=== PATIENT | female | born 1985 | race American Indian/Alaskan Native ===

== ENCOUNTER 2018-07-20 08:36 | Inpatient (IN) | payer OTHER ==
[2018-07-20] MEDS ORDERED: STADOL IV PRN (09:08)
[2018-07-20] MEDS ORDERED: ZOFRAN IV PRN ×2 (09:08→17:05)
[2018-07-20] MEDS ORDERED: BRETHINE IVP PRN (09:08)
[2018-07-20] MEDS ORDERED: XYLOCAINE 2% INFILTRATI ONE (09:08)
[2018-07-20] MEDS ORDERED: PHENERGAN PO PRN ×2 (09:08→17:05)
[2018-07-20] MEDS ORDERED: BRETHINE SUB-Q PRN (09:08)
[2018-07-20 09:41] LABS: Hematocrit 35.8 % (30.3-42.9); Hemoglobin 12.2 gm/dl (10.1-14.3); Mean Corpuscular HGB Conc 34 % (30-34); Mean Corpuscular Volume 99 fl (79-97); Platelet Count 262 K/mm3 (140-440); Red Blood Count 3.61 M/mm3 (3.65-5.03); Red Cell Distribution Width 13.8 % (13.2-15.2)
[2018-07-20] MEDS ORDERED: PITOCin/NS 30 UNIT/500ML 30 UNITS/500 ML BAG IV SCH (10:00)
[2018-07-20] MEDS ORDERED: LACTATED RINGERS 1,000 ML IV SCH (10:00)
[2018-07-20] MEDS ORDERED: PITOCin/NS 20 UNIT/1000ML DRIP 20 UNITS/1,000 ML BAG IV SCH ×2 (10:00→17:05)
--- NOTE | 2018-07-20 11:56 | History and Physical Report ---
History of Present Illness Date of examination: 07/20/18 Date of admission: 07/20/18 08:36 Chief complaint: IOL per [facility] for maternal cardiac condition and c/o irregular heart beat and intermittent SOB History of present illness: Menstrual History Regularity: regular Menses every: 28-35 days Duration: 4 LMP: 10/20/2017 LMP reliability: definite LMP character: normal test type: urine test Date: 12/12/2017 BC at conception: none Planned ? yes EDC Calculations LMP: 07/27/2018 First Doppler FHT (date): 12/12/2017 EDC Confirmation: 07/27/2018 Gestational Age: 7 4/7 weeks Risk Factors: Smoked Tobacco Use: Never smoker Smokeless Tobacco Use: Never Passive smoke exposure: no Drug use: no HIV high-risk behavior: low risk Caffeine use: 0 drinks per day Alcohol use: no Seatbelt use: preg-associate counsel % Dietary Counseling: pn yes Past Medical History Abnormal PAP: negative VIN Exposure: negative Infertility: negative Uterine Anomaly: negative Uterine Surgery (not C/S): negative Other Gynecologic Problems: negative Social Hx: Unemployed Patient is single Infection History Hx of STD: chlamydia HIV Risk Eval: low risk Hepatitis B Risk Eval: low risk Personal hx. of genital herpes: no Partner hx. of genital herpes: no Rash, Viral, or Febrile illness since last LMP? no Varicella/Chicken Pox Status: Previous Disease TB Risk: no Genetic History Congenital Heart Defect: Mom: no Dad: no Madi Disease: Mom: no Dad: no Thalassemia Mom: no Dad: no Neural Tube Defect Mom: no Dad: no Down's Syndrome Mom: no Dad: no Kiel-Sachs Mom: no Dad: no Sickle Cell Disease/Trait Mom: no Dad: no Hemophilia Mom: no Dad: no Muscular Dystrophy Mom: no Dad: no Cystic Fibrosis Mom: no Dad: no Davison Chorea Mom: no Dad: no Mental Retardation Mom: no Dad: no Fragile X Mom: no Dad: no Other Genetic/Chromosomal Disorder Mom: no Dad: no Child w/other defect Mom: no Dad: no Enviromental Exposures Xray Exposure: no Medication, drug, or alcohol use since LMP: no Chemical/Other Exposure: no Exposure to Cat Liter: no Hx of Parvovirus (Fifth Disease): no Occupational Exposure to Children: none Active Medications: PRENATE PIXIE () one po QD METOPROLOL SUCCINATE ER 25 MG ORAL TABLET EXTENDED RELEASE 24 HOUR (METOPROLOL SUCCINATE) Current Allergies: No known allergies Past History Past Medical History: other (see H&P) Past Surgical History: other (see H&P) 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: other (see H&P) Family/Genetic History: other (see H&P) Social history: other (see H&P) - Obstetrical History Expected Date of Delivery: 07/27/18 Actual Gestation: 39 Week(s) 0 Day(s) : 6 Medications and Allergies Allergies Allergy/AdvReac Type Severity Reaction Status Date / Time No Known Allergies Allergy Verified 07/29/15 08:09 Home Medications Medication Instructions Recorded Confirmed Last Taken Type Metoprolol Xl [Metoprolol 25 mg PO QHS 07/29/15 08/20/16 1 Day Ago History SUCCINATE ER TAB] ~08/19/16 Active Meds: Active Medications Butorphanol Tartrate (Stadol) 2 mg IV Q2H PRN PRN Reason: Pain , Severe (7-10) Ephedrine Sulfate (Ephedrine Sulfate) 10 mg IV Q2M PRN PRN Reason: Hypotension Oxytocin/Sodium Chloride (Pitocin/Ns 20 Unit/1000ml Drip) 20 units in 1,000 mls @ 125 mls/hr IV DIRECT YASMIN Lactated Ringer's (Lactated Ringers) 1,000 mls @ 125 mls/hr IV DIRECT YASMIN Last Admin: 07/20/18 10:13 Dose: 125 mls/hr Documented by: Oxytocin/Sodium Chloride (Pitocin/Ns 30 Unit/500ml) 30 units in 500 mls @ 2 mls/hr IV TITR YASMIN; Protocol Last Titration: 07/20/18 11:48 Dose: 12 ml/hr, 12 mls/hr Documented by: Mineral Oil (Mineral Oil) 30 ml PO QHS PRN PRN Reason: Constipation Ondansetron HCl (Zofran) 4 mg IV Q8H PRN PRN Reason: Nausea And Vomiting Promethazine HCl (Phenergan) 25 mg PO Q6H PRN PRN Reason: Nausea And Vomiting Terbutaline Sulfate (Brethine) 0.25 mg SUB-Q ONCE PRN PRN Reason: Hyperstimulation/Hypertonicity Terbutaline Sulfate (Brethine) 0.25 mg IVP ONCE PRN PRN Reason: Hyperstimulation/Hypertonicity Review of Systems All systems: negative - Vital Signs Vital signs: Vital Signs Pulse BP 83 114/70 07/20/18 09:14 07/20/18 09:14 Temp Pulse Resp BP Pulse Ox 73 111/59 07/20/18 11:26 07/20/18 11:26 - Physical Exam Breasts: Positive: normal Cardiovascular: Regular rate, Normal S1, Normal S2 Lungs: Positive: Clear to auscultation Abdomen: Positive: normal appearance, soft, normal bowel sounds. Negative: distention, tenderness Vulva: both: normal Vagina: Positive: normal moisture. Negative: discharge Cervix: Negative: lesion, discharge Uterus: Positive: normal size, normal contour Adnexa: both: normal Anus/Rectum: Positive: normal perianal skin, heme negative. Negative: rectal mass, hemorrhoids Extremities: Deep Tendon Reflex Grade: Normal +2 - Obstetrical FHR: auscultation normal, category 1 Uterine Contraction Monitor Mode: External Cervical Dilatation: 4 Cervical Effacement Percentage: 60 station: -1 Uterine Contraction Frequency (min): irreguar Uterine Contraction Pattern: Irregular Uterine Tone Measurement Phase: Contraction Results Result Diagrams: 07/20/18 09:30 Abnormal lab results 07/20/18 Range/Units 09:30 RBC 3.61 L (3.65-5.03) M/mm3 MCV 99 H (79-97) fl MCH 34 H (28-32) pg All other labs normal. Assessment and Plan 33 y.o IUP at 39w0d presents for IOL per [facility] recommendation for maternal cardiac condition and recent c/o irregular heart beat and intermittent shortness of breath. SVE is 4/60/-1, vertex, IBOW. Category 1 tracing, irregular contractions on TOCO. GBS negative. Routine admission orders placed in EMR. Pitocin induction initiated. Anticipate .
[2018-07-20] MEDS ORDERED: NARCAN 2 MG/2 ML IV PRN (13:26)
[2018-07-20] MEDS ORDERED: fentaNYL-BUPIV 2 MCG/ML-0.125% 200 MCG/100 ML BAG EPIDURAL ONE (13:28)
[2018-07-20] MEDS ORDERED: fentaNYL-BUPIV 2 MCG/ML-0.125% 200 MCG/100 ML BAG EPIDURAL SCH (14:00)
--- NOTE | 2018-07-20 15:07 | Procedure Note ---
OB Delivery Note - Delivery Date of Delivery: 07/20/18 Cut Press Operator: POLA GAMBLE Estimated blood loss: 300cc - Vaginal Delivery presentation: vertex Delivery position: OP (OAP) Intrapartum events: none Delivery induction: oxytocin Delivery monitor: external FHT, external uterine Route of delivery: Delivery placenta: spontaneous Episiotomy: none Delivery laceration: none Anesthesia: epidural Delivery comments: of viable male over intact perineum. Infant placed skin to skin on mother's abdomen, drying and stimulation produce vigorous cry. Cord clamped x2 upon cessation of pulsation and cut by FOC. Placenta delivered complete and intact, 3VC. Pitocin to IV. Fundus firm, ML. EBL 300, hemostatic. No lacerations to repair. VSS. Patient is comfortable. Infant apgars 8/9, weight 7#4. Mother and LDR stable. - A at 1 minute: 8 at 5 minutes: 9 Gender: Male (7#4)
[2018-07-20] MEDS ORDERED: LANSINOH TP PRN (17:05)
[2018-07-20] MEDS ORDERED: MILK OF MAGNESIA PO PRN (17:05)
[2018-07-20] MEDS ORDERED: BENADRYL PO PRN (17:05)
[2018-07-20] MEDS ORDERED: TUCKS PAD TP PRN (17:05)
[2018-07-20] MEDS ORDERED: SODIUM CHLORIDE FLUSH SYRINGE 10 ML IV SCH (17:05)
[2018-07-20] MEDS ORDERED: DULCOLAX PR PRN (17:05)
[2018-07-20] MEDS: IBUPROFEN PO SCH (17:53)
[2018-07-20] MEDS ORDERED: MINERAL OIL PO PRN (22:00)
[2018-07-20] MEDS: TYLENOL PO PRN (22:26)
[2018-07-21] MEDS: IBUPROFEN PO SCH ×5 (02:23→23:39)
[2018-07-21 05:11] LABS: Hematocrit 32.1 % (30.3-42.9); Hemoglobin 11.1 gm/dl (10.1-14.3)
[2018-07-21] MEDS ORDERED: BOOSTRIX IM ONE (06:00)
[2018-07-21] MEDS: PRENATAL VITAMIN PO SCH (09:40)
--- NOTE | 2018-07-21 10:20 | Progress Note ---
Subjective Date of service: 07/20/18 Principal diagnosis: Epidural Interval history: At bedside to speak with patient per nursing staff request. Patient is now post epidural day 1. Combined spinal and epidural note denies tita leakage of CSF. Patient describes headache with pain 3 out of 10 down from 7 out of 10 yesterday with neck stiffness. Pain is worse when sitting up. Post dural puncture headache explained to patient and options discussed to include conservative measures and epidural blood patch. Patient agrees to proceed with conservative measures and will alert nursing personnel if headache is unresolved within 48 hours. If needed, we will then proceed with epidural blood patch. Objective - Constitutional Vitals: Vital Signs - 12hr 07/20/18 07/20/18 07/21/18 22:26 23:26 01:09 Temperature 98.5 F Pulse Rate 68 Respiratory 18 18 18 Rate Blood Pressure 107/47 Blood Pressure [Left] O2 Sat by Pulse 97 Oximetry 07/21/18 07/21/18 07/21/18 02:23 03:23 07:55 Temperature 98.6 F Pulse Rate 89 Respiratory 18 18 20 Rate Blood Pressure 98/53 Blood Pressure [Left] O2 Sat by Pulse 98 Oximetry 07/21/18 08:00 Temperature Pulse Rate Respiratory Rate Blood Pressure Blood Pressure 98/53 [Left] O2 Sat by Pulse Oximetry - Labs CBC & Chem 7: 07/21/18 04:59
--- NOTE | 2018-07-21 15:04 | Progress Note ---
Assessment and Plan - Patient Problems (1) Headache Current Visit: Yes Status: Acute Qualifiers: Headache chronicity pattern: unspecified pattern Plan to address problem: -con't to monitor closely -await recommendations from anesthesia (2) Spontaneous vaginal delivery Current Visit: No Status: Acute Subjective - Subjective Date of service: 07/21/18 Principal diagnosis: PPD#1 s/p 2)headache Interval history: Pt is overall doing well but does c/o headache she has had since delivery that today is better than yesterday. Seems to be worst with position change. No blurry vision BP are normal. Pt being evaluated by anesthesia and being considered for possible blood patch if PATEL does not con't to improve or worsens. Pt does c/o nasal stuffiness she had had prior to delivery and is not sure if this is not also contributing to the headache. She has not taken any meds for sinus congestion. Patient reports: appetite normal, voiding normally, pain well controlled, ambulating normally, no dizzy ambulation Reading: doing well, nursing well Objective - Vital Signs Latest vital signs: Vital Signs Temp Pulse Resp BP BP Pulse Ox 07/21/18 12:32 98.3 F 68 20 108/60 96 07/21/18 08:00 98/53 07/21/18 07:55 98.6 F 89 20 98/53 98 07/21/18 03:23 18 07/21/18 02:23 18 07/21/18 01:09 98.5 F 68 18 107/47 97 07/20/18 23:26 18 07/20/18 22:26 18 07/20/18 21:52 98.5 F 73 18 100/48 96 07/20/18 16:50 98.8 F 75 18 111/44 Intake and Output 07/21/18 07/21/18 07/21/18 06:59 14:59 22:59 Intake Total 720 Balance 720 Intake: Intake, Free Water 720 Other: # Voids Void 1 - Exam Cardiovascular: Present: Normal S1, Normal S2 Lungs: Present: Clear to auscultation, Normal air movement Abdomen: Present: normal appearance, soft. Absent: distention, tenderness, guarding Uterus: Present: fundal height below umbilicus Extremities: Present: normal. Absent: tenderness, edema
[2018-07-22] MEDS: IBUPROFEN PO SCH ×2 (10:39→17:28)
[2018-07-22] MEDS: PRENATAL VITAMIN PO SCH (10:41)
--- NOTE | 2018-07-22 11:49 | Progress Note ---
Assessment and Plan - Patient Problems (1) Headache Current Visit: Yes Status: Acute Qualifiers: Headache chronicity pattern: unspecified pattern Plan to address problem: -con't to monitor closely -await recommendations from anesthesia -CT of head with and without contrast ordered for today (2) Spontaneous vaginal delivery Current Visit: No Status: Acute Plan to address problem: -routine pp care -will await findings of ct and anesthesia consult -will hold d/c at this time Subjective - Subjective Date of service: 07/22/18 Principal diagnosis: PPD#2 s/p 2)headache Interval history: Pt does continue to have frontal headache that she describes a throbbing. Will con't admission at this time and await evaluation by anesthesia for possible placement of blood patch. Will also obtain ct scan of head to rule out any other pathology.Plan of care d/w pt and all questions were addressed and answered. She agrees with plan of caer. Patient reports: appetite normal, voiding normally, no dizzy ambulation [place]: doing well, nursing well Objective - Vital Signs Latest vital signs: Vital Signs Temp Pulse Resp BP Pulse Ox 07/22/18 08:54 98.0 F 70 24 100/49 98 07/22/18 00:39 18 07/22/18 00:26 98.6 F 68 20 103/56 92 07/21/18 23:39 18 07/21/18 17:25 98.3 F 76 20 98/60 98 07/21/18 12:32 98.3 F 68 20 108/60 96 Intake and Output 07/21/18 07/22/18 07/22/18 22:59 06:59 14:59 Intake Total 240 240 Balance 240 240 Intake: Intake, Free Water 240 240 Other: # Voids Void 1 1 - Exam Lungs: Present: Normal air movement Abdomen: Present: normal appearance, soft. Absent: distention, tenderness
[2018-07-22 13:23] LABS: Alanine Aminotransferase 11 units/L (7-56); Albumin 2.7 g/dL (3.9-5); BUN/Creatinine Ratio 9; Blood Urea Nitrogen 7 mg/dL (7-17); Calcium 8.7 mg/dL (8.4-10.2); Hemolysis Index 0
--- NOTE | 2018-07-22 17:47 | Event Note ---
Date: 07/22/18 (LATE ENTRY) Pt seen and evaluated by anesthesia. Blood patch to be placed and pt observed for improvement of headache at this time. CT scan held upon recommendation of anesthesia due to feeling pt may benefit from blood patch.Will con't to monitor closely.
--- NOTE | 2018-07-22 19:23 | Cat Scan Report ---
PROCEDURE: CT HEAD/BRAIN WO/W CON TECHNIQUE: Computerized tomography of the head was performed without contrast material. CT DOSE LENGTH PRODUCT: 927.23 mGycm HISTORY: headache COMPARISONS: None . FINDINGS: Skull and scalp: Normal . Paranasal sinuses: Normal . Ventricles and subarachnoid spaces: Normal . Cerebrum: No evidence of hemorrhage, acute infarction or mass . Cerebellum and brainstem: No evidence of hemorrhage, acute infarction or mass . Vasculature: Vasculature appears hyperdense throughout which may be due to prior intravenous contras t administration and can be correlated clinically. . Other: None . ASPECTS: 10 IMPRESSION: No acute intracranial abnormality. This document is electronically signed by Batsheva Fernando MD., Jul 22 2018 07:21:02 PM ET
--- NOTE | 2018-07-22 21:24 | Event Note ---
Date: 07/22/18 CT with and without contrast is normal. Will con't close observation. Pt sx seems to be improving.
[2018-07-22] MEDS: TYLENOL PO PRN (21:33)
[2018-07-23] MEDS: IBUPROFEN PO SCH ×2 (00:22→12:20)
[2018-07-23] MEDS: TYLENOL PO PRN (08:22)
--- NOTE | 2018-07-23 10:26 | Discharge Summary ---
Providers - Providers Date of Admission: 07/20/18 08:36 Date of discharge: 07/23/18 Attending physician: MARY LORENZ Primary care physician: MARY LORENZ Hospitalization Reason for admission: induction of labor (recommended by the perinatologist due to maternal arrhythmia), IUP at term Delivery: Episiotomy: none Laceration: none Other procedures: other (head CT scan blood patch placed) complications: spinal headache Discharge diagnosis: IUP at term delivered baby: male Hospital course: See dictated H&P. Patient was admitted underwent a normal spontaneous vaginal delivery. Her course was headache. Patient had an anesthesia consult and had a blood patch applied. Patient states that slightly improved but still had some frontal headache complaints with no visual disturbances. On day of discharge patient complaints and fatigue. Hospital desires discharge home. Will discharge with Tylenol codeine with follow-up in 2 days in the office possible neurology consult if persists. She was afebrile throughout her stay. Her day 1 hematocrit was 32%. Patient is breast-feeding and desires [employer] . Condition at discharge: Good Disposition: DC-01 TO HOME OR SELFCARE - Discharge Diagnoses (1) Headache Status: Acute Qualifiers: Headache chronicity pattern: unspecified pattern Intractability: not intractable Comment: Patient follow office 07/25/2018 (2) Morbid (severe) obesity due to excess calories Status: Acute (3) Spontaneous vaginal delivery Status: Acute Comment: rto 2 days PP care Plan - Discharge Medications Prescriptions: Lidocain2.5%/Prilocai2.5% [Emla] 2 gm TP ONCE #1 tube Ferrous Sulfate [Feosol 325 MG tab] 325 mg PO BID #60 tablet Ibuprofen [Motrin 800 MG tab] 800 mg PO Q6H PRN #30 tablet PRN Reason: Pain Acetaminophen/Codeine [Tylenol #3] 1 tab PO Q4HR PRN #10 tablet PRN Reason: Pain - Provider Discharge Summary Activity: routine, no sex for 6 weeks Diet: routine Instructions: routine Additional instructions: [] Smoking cessation referral if applicable(refer to patient education folder for contact #) [] Refer to [facility] Booklet Call your doctor immediately for: * Fever > 100.5 * Heavy vaginal bleeding ( >1 pad per hour) * Severe persistent headache * Shortness of breath * Reddened, hot, painful area to leg or breast * Drainage or odor from incision. * Patient to call office to schedule her son's circumcision - Follow up plan Follow up: MARY LORENZ MD [Primary Care Provider] - 7 Days Forms: [facility] Discharge Summary, Discharge Signature Page
[2018-07-23] MEDS: PRENATAL VITAMIN PO SCH (10:54)
[2018-07-23 16:14] VITALS: BP 124/78
== END 2018-07-23 16:10 | disposition home or self-care (01) | DRG 774 ==
LOC: LD 08:36 → OB 17:03
PROVIDERS: ADMIT Obstetrics & Gynecology; ATTEND Obstetrics & Gynecology
PROC: 10E0XZZ Delivery of Products of Conception, External Approach (ICD-10-PCS; principal; 2018-07-20)
PROC: 3E0R3BZ Introduction of Anesthetic Agent into Spinal Canal, Percutaneous Approach (ICD-10-PCS; 2018-07-20)
PROC: 00HU33Z Insertion of Infusion Device into Spinal Canal, Percutaneous Approach (ICD-10-PCS; 2018-07-20)
PROC: 3E033VJ Introduction of Other Hormone into Peripheral Vein, Percutaneous Approach (ICD-10-PCS; 2018-07-20)
PROC: 3E0234Z Introduction of Serum, Toxoid and Vaccine into Muscle, Percutaneous Approach (ICD-10-PCS; 2018-07-21)
DX: O99.42 Diseases of the circulatory system complicating childbirth (principal); I49.9 Cardiac arrhythmia, unspecified; O99.214 Obesity complicating childbirth; E66.01 Morbid (severe) obesity due to excess calories; Z3A.39 39 weeks gestation of pregnancy; Z37.0 Single live birth; Z23 Encounter for immunization; O89.4 Spinal and epidural anesthesia-induced headache during the puerperium
CPT/HCPCS: 36415; 70470; 80053; 85014; 85018; 85027; 86592; 86850; 86900; 86901; 90471; 90715; G0378; J2590; J7120; Q9967